=== PATIENT | female | born 1960 | race Caucasian/White ===

== ENCOUNTER 2018-03-23 23:06 | Inpatient (IN) | payer MEDICARE, BC ==
[~2018-03-23] VITALS: Ht 180.3 cm; Wt 104.5 kg
[~2018-03-23 23:06] MED LIST: CIPR500T2 PO; DIOV160T60 PO; HYDR12.56 PO; LEVIMER SQ; METF-324 PO; PROM6.257 PO; ZITH250T PO
[2018-03-23 23:15] VITALS: BP 119/72; PULSE 56; RESP 20; TEMP 98; O2SAT 99
[2018-03-23] MEDS ORDERED: DEXTROSE 50% IN WATER 50 ML SYRINGE IV PUSH ONE (23:15)
[2018-03-23] MEDS ORDERED: DEXTROSE 50% IN WATER 50 ML SYRINGE ONE (23:16)
[2018-03-23 23:21] VITALS: RESP 20
[2018-03-23 23:25] VITALS: BP 163/68; PULSE 52; RESP 20; O2SAT 96
[2018-03-23] MEDS ORDERED: LYRI150C PO (23:25)
[2018-03-23] MEDS ORDERED: DIOV160T6 PO (23:25)
[2018-03-23] MEDS ORDERED: HUMALOG SQ (23:25)
[2018-03-23] MEDS ORDERED: METF1000 PO (23:25)
[2018-03-23 23:36] LABS: AUTOMATED NEUTROPHIL # 4.3 TH/MM3 (1.8-7.7); BASOPHIL # 0.1 TH/MM3 (0-0.2); EOSINOPHIL # 0.1 TH/MM3 (0-0.4); EOSINOPHIL % 1.5 % (0.0-4.0); HEMATOCRIT 38.8 % (35.0-46.0); HEMOGLOBIN 12.9 GM/DL (11.6-15.3); LYMPHOCYTE # 1.9 TH/MM3 (1.0-4.8); MEAN CELL VOLUME 83.8 FL (80.0-100.0); MEAN CORPUSCULAR HEMOGLOBIN 27.9 PG (27.0-34.0); MEAN CORPUSCULAR HGB CONC 33.3 % (32.0-36.0); MEAN PLATELET VOLUME 9.6 FL (7.0-11.0); MONO % 9.3 % (0.0-8.0); MONOCYTE # 0.6 TH/MM3 (0-0.9); NEUT % 61.2 % (16.0-70.0); PLATELET COUNT 182 TH/MM3 (150-450); RED BLOOD COUNT 4.63 MIL/MM3 (4.00-5.30); RED CELL DISTRIBUTION WIDTH 15.2 % (11.6-17.2)
[2018-03-23 23:52] LABS: ALBUMIN 2.5 GM/DL (3.4-5.0); ALT (GPT) 23 U/L (10-53); AST (GOT) 24 U/L (15-37); BLOOD UREA NITROGEN 52 MG/DL (7-18); CALCIUM 8.4 MG/DL (8.5-10.1); CHLORIDE 114 MEQ/L (98-107); CREATININE 5.19 MG/DL (0.50-1.00); GLOMERULAR FILTRATION RATE 9 ML/MIN (>89); GLUCOSE,RANDOM 230 MG/DL (74-106); MAGNESIUM 2.5 MG/DL (1.5-2.5); SODIUM (NA) 144 MEQ/L (136-145)
[2018-03-23 23:55] LABS: PROTHROMBIN TIME - PATIENT 10.6 SEC (9.8-11.6)
--- NOTE | 2018-03-23 23:55 | RADRPT ---
EXAM DATE: 03/23/2018 11:48 PM EDT AGE/SEX: 57 years / Female INDICATIONS: AMS. Diabetic symptoms. CLINICAL DATA: This is the patient's initial encounter. Patient reports that signs and symptoms have been present for 1 day and indicates a pain score of Nonresponsive. MEDICAL/SURGICAL HISTORY: Diabetes. . Triple by-pass. COMPARISON: No prior exams available for comparison. FINDINGS: Single AP view of the chest. Median sternotomy wires are present. Lung volumes are low. Th e lungs are clear. Cardiomediastinal silhouette within normal limits. No evidence of pleural effusi on or pneumothorax. CONCLUSION: No acute cardiopulmonary disease identified. Electronically signed by: Booker Alcaraz MD 03/23/2018 11:54 PM EDT
[2018-03-23 23:56] LABS: ALKALINE PHOSPHATASE 64 U/L (45-117); TOTAL BILIRUBIN ADULT 0.2 MG/DL (0.2-1.0); TOTAL PROTEIN 5.9 GM/DL (6.4-8.2); TROPONIN I LESS THAN 0.02 NG/ML (0.02-0.05)
[2018-03-24] VITALS (36 sets, daily range): BP systolic 139–245; BP diastolic 65–115; PULSE 52–81; RESP 10–36; TEMP 92.3–98.3; O2SAT 92–100
[2018-03-24] MEDS ORDERED: LEVEMIR SQ (00:01)
[2018-03-24] MEDS ORDERED: TRAD5TAB PO (00:01)
[2018-03-24] MEDS ORDERED: SODIUM CHLORIDE 23.4% INJ 154 MEQ in DEXTROSE 10% INJ 1,000 ML IV SCH (00:15)
--- NOTE | 2018-03-24 00:16 | PD ---
HPI Chief Complaint: Diabetic Time Seen by Provider: 23:15 Travel History International Travel<30 days: No Contact w/Intl Traveler<30days: No Traveled to known affect area: No History of Present Illness HPI The patient is a 57 year old female who presents to the [facility] emergency department with a history of diaphoresis with a decreased level of consciousness that began in the evening today according to her . He then called the ambulance services and the patient was noted to have a blood sugar of 16. The patient last administered her insulin around noon. She administered 20 units of Levemir and 15 units of Humalog. The patient has not eaten her dinner this evening. She last ate lunch at 1 PM. She denies having any nausea, vomiting, she does report feeling cold and is diaphoretic. The patient reports having a bitemporal headache and low back pain. She reports having a history of chronic back pain and is on [place] and [place]. She reports that she awoke with worsening back pain this morning. She is currently on vacation. Her reports that she does have chronic renal insufficiency that is so severe that she will likely have to go on dialysis when she returns from vacation. On review of systems otherwise, the patient denies having any known recent fevers, cough, congestion, neck pain, chest pain, shortness of breath, abdominal pain, vomiting, diarrhea, urinary symptoms, one-sided weakness , facial droop, difficulty with word finding ability, or numbness or tingling to her extremities. [facility] Past Medical History Narrative Medical The patient's past medical history is significant for diabetes mellitus, hypertension, chronic back pain, chronic renal insufficiency Diabetes: Yes Patient Takes Glucophage: Yes Diminished Hearing: No Hypertension: Yes Immunizations Current: Yes Tetanus Vaccination: Unknown Influenza Vaccination: No ?: Not Past Surgical History Narrative Surgical The patient's past surgical history is significant for gastric bypass surgery, bladder surgery, back surgery, hysterectomy, cholecystectomy. Abdominal Surgery: Yes (GASTRIC BYPASS 30 YRS AGO) Section: Yes Cholecystectomy: Yes Genitourinary Surgery: Yes (BLADDER LIFT) Hysterectomy: Yes (PARTIAL) Neurologic Surgery: Yes (BACK SURGERY) Social History Alcohol Use: Yes (COUPLE TIMES A YEAR) Tobacco Use: Yes (1 PPD) Substance Use: No Allergies-Medications (Allergen,Severity, Reaction): Coded Allergies: sumatriptan (Unverified Allergy, Severe, HIVES, 03/23/18) Reported Meds & Prescriptions Reported Meds & Active Scripts Active Reported Tradjenta (Linagliptin) 5 Mg Tab 5 Mg PO DAILY Levemir Inj (Insulin Detemir) 1,000 unit/ 10 ML Vial 20 Units SQ BID Do not mix with any other Insulin. Diovan (Valsartan) 160 Mg Tab 160 Mg PO BID Humalog Inj (Insulin Human Lispro) 1,000 Unit/10 Ml Vial 2-12 Units SQ ACHS Max dose at bedtime:( )units; sugars < 70,(0)units; sugars 150-199,(2)units; sugars 200-249,(4)units; sugars 250-299,(7)units; sugars 300-349,(10)units; sugars more than 349,(12)units. Lyrica (Pregabalin) 150 Mg Cap 150 Mg PO BID Metformin (Metformin HCl) 1,000 Mg Tab 1,000 Mg PO BIDPC Review of Systems ROS Limitations: Altered Mental Status, Poor Historian (The patient's and provided additional history on his arrival) Except as stated in HPI: all other systems reviewed are Neg General / Constitutional: No: Fever Eyes: No: Visual changes HENT: No: Headaches Cardiovascular: No: Chest Pain or Discomfort Respiratory: No: Shortness of Breath Gastrointestinal: No: Nausea, Vomiting, Diarrhea, Abdominal Pain Genitourinary: No: Dysuria Musculoskeletal: Positive: Myalgias, Pain Skin: No Rash Neurologic: Positive: Weakness (Generalized weakness), Change in Mentation, Slurred Speech, No: Focal Abnormalities, Sensory Disturbance Psychiatric: No: Depression Endocrine: No: Polydipsia Hematologic/Lymphatic: No: Easy Bruising Physical Exam Narrative General: The patient is a well-developed well-nourished female, drowsy on my arrival to the room although arousable, awakened easily with voice. Head and Neck exam: Head is normocephalic atraumatic. Eyes: EOMI, pupils are equal round and reactive to light. Nose: Midline septum with pink mucous membranes Mouth: Dentition unremarkable. Moist mucus membranes. Posterior oropharynx is not erythematous. No tonsillar hypertrophy. Uvula midline. Airway patent. Neck: No palpable lymphadenopathy. No nuchal rigidity. No thyromegaly. Cardiovascular: Regular rate and rhythm without murmurs, gallops, or rubs. No pulse deficit to the extremities on simultaneous auscultation and palpation of her radial artery. Lungs: Clear to auscultation bilaterally. No wheezes, rhonchi, or rales. Abdomen: Soft, without tenderness to palpation in all 4 quadrants of the abdomen. No guarding, rebound, or rigidity. Normal bowel sounds are audible. No tenderness on palpation of McBurney's point. Negative Blue sign. Extremities: No clubbing, cyanosis, or edema. 2+ pulses in all 4 extremities. No calf tenderness on palpation. Back: No spinous process tenderness to palpation. The patient reports paraspinal muscle tenderness on palpation along the upper and lower lumbar paraspinal musculature. There is no erythema or ecchymosis. No step-off or crepitus. No costovertebral angle tenderness to palpation. Neurologic Exam: Cranial nerves 2-12 were intact on exam. Strength is 5/5 in all 4 extremities. No sensory deficits noted. The patient has slightly slurred speech. The patient is drowsy on examination. The patient has no other focal findings and is cooperative with examination although she has to be frequently awakened. Skin Exam: No rash noted. Intact skin that is warm and dry. Data Data Last Documented VS Vital Signs Date Time Temp Pulse Resp B/P (MAP) Pulse Ox O2 Delivery O2 Flow Rate FiO2 03/23/18 23:25 52 20 163/68 (99) 96 Room Air Orders Orders Electrocardiogram (03/23/18 23:15) Complete Blood Count With Diff (03/23/18 23:) Comprehensive Metabolic Panel (03/23/18:) Creatine Kinase (Cpk) (03/23/18 23:15) Ckmb (Isoenzyme) Profile (03/23/18:15) Troponin I (03/23/18 23:15) B-Type Natriuretic Peptide (03/23/18 23:15) Prothrombin Time / Inr (Pt) (03/23/18:15) Act Partial Throm Time (Ptt) (03/23/18 23:15) Lipase (03/23/18 23:15) Urinalysis - C+S If Indicated (03/23/18 23:) Cath For Specimen (03/23/18:) Magnesium (Mg) (03/23/18 23:15) Chest, Single Ap (03/23/18 23:15) Iv Access Insert/Monitor (03/23/18 23:15) Ecg Monitoring (03/23/18 23:15) Oximetry (03/23/18 23:15) Blood Glucose (03/23/18 23:15) ^ Hypoglycemia Protocol (03/23/18 23:15) Dextrose 50% In Judy (Syr) Inj (D50w (Syr (03/23/18 23:15) Dextrose 50% In Judy (Syr) Inj (D50w (Syr (03/23/18 23:16) CKMB (03/23/18 23:25) CKMB% (03/23/18 23:25) Dextrose 10% Inj (D... W/Sodium Chloride (03/24/18 00:15) Urinary Catheter Insert/Apply (03/24/18 00:05) Dextrose 50% In Judy (Syr) Inj (D50w (Syr (03/24/18 00:30) Admit Order (Ed Use Only) (03/24/18 00:26) Labs Laboratory Tests Test 03/23/18 23:25 White Blood Count 7.0 TH/MM3 Red Blood Count 4.63 MIL/MM3 Hemoglobin 12.9 GM/DL Hematocrit 38.8 % Mean Corpuscular Volume 83.8 FL Mean Corpuscular Hemoglobin 27.9 PG Mean Corpuscular Hemoglobin Concent 33.3 % Red Cell Distribution Width 15.2 % Platelet Count 182 TH/MM3 Mean Platelet Volume 9.6 FL Neutrophils (%) (Auto) 61.2 % Lymphocytes (%) (Auto) 27.0 % Monocytes (%) (Auto) 9.3 % Eosinophils (%) (Auto) 1.5 % Basophils (%) (Auto) 1.0 % Neutrophils # (Auto) 4.3 TH/MM3 Lymphocytes # (Auto) 1.9 TH/MM3 Monocytes # (Auto) 0.6 TH/MM3 Eosinophils # (Auto) 0.1 TH/MM3 Basophils # (Auto) 0.1 TH/MM3 CBC Comment DIFF FINAL Differential Comment Prothrombin Time 10.6 SEC Prothromb Time International Ratio 1.0 RATIO Activated Partial Thromboplast Time 25.0 SEC Blood Urea Nitrogen 52 MG/DL Creatinine 5.19 MG/DL Random Glucose 230 MG/DL Total Protein 5.9 GM/DL Albumin 2.5 GM/DL Calcium Level 8.4 MG/DL Magnesium Level 2.5 MG/DL Alkaline Phosphatase 64 U/L Aspartate Amino Transf (AST/SGOT) 24 U/L Alanine Aminotransferase (ALT/SGPT) 23 U/L Total Bilirubin 0.2 MG/DL Sodium Level 144 MEQ/L Potassium Level 4.2 MEQ/L Chloride Level 114 MEQ/L Carbon Dioxide Level 20.0 MEQ/L Anion Gap 10 MEQ/L Estimat Glomerular Filtration Rate 9 ML/MIN Total Creatine Kinase 367 U/L Creatine Kinase MB 4.9 NG/ML Creatine Kinase MB % 1.3 % Troponin I LESS THAN 0.02 NG/ML B-Type Natriuretic Peptide 103 PG/ML Lipase 268 U/L MDM Medical Decision Making Medical Screen Exam Complete: Yes Emergency Medical Condition: Yes Medical Record Reviewed: Yes Differential Diagnosis Hypoglycemia related to decreased p.o. intake, versus renal failure, versus medication error Narrative Course During the course of the patient's emergency department visit, the patient's history, examination, and differential diagnosis were reviewed with the patient. The patient was placed on a bible worker with oximetry and frequent blood pressure monitoring. The patient had IV access obtained and blood work sent for analysis. The patient had an EKG done on arrival. The patient's EKG reveals sinus bradycardia heart rate of 58, QRS duration 112 ms, QTC [address] segment elevation is noted. The patient's blood sugar on arrival began to go down again and was 36 whereas after 25 g of D10 by ambulance services it had been 60. The patient was given 1 amp of dextrose, 50 g IV. The patient's blood sugar was monitored closely. The patient's blood sugar began to drop again down to in the 80s. The patient reported continuing to feel cold the patient's blood sugar again went down to 66. A D10 drip will be started. This has to be mixed by pharmacy, therefore the patient was given an additional amp of dextrose 50. Chest x-ray, CT scan of the brain was ordered. The patient's laboratory studies were reviewed and remarkable for A white count of 7, hemoglobin 12.9, platelets 182 with 9.3 monocytes, chemistries remarkable for a chloride of 114, CO2 20, BUN 52, creatinine 5.19, given the patient's acute renal failure the patient that a Bueno catheter placed to gravity to carefully monitor her urine output while providing crystalloid resuscitation, glucose 230, calcium 8.4, CPK 367, MB percent 1.3, troponin I less than 0.02, BNP 103, lipase 268. PT PTT unremarkable, urinalysis shows hazy urine greater than 600 protein 300 glucose, moderate bacteria, culture indicated.. Radiology studies were reviewed and remarkable for Last Impressions Renal Ultrasound 03/24/18 0000 Signed Impressions: CONCLUSION: 1. No obstruction. 2. Sonographic findings suggesting underlying medical renal disease. Chest X-Ray 03/23/18 2315 Signed Impressions: CONCLUSION: No acute cardiopulmonary disease identified. The patient's results were discussed with the patient, including the plan of care. I explained that further testing and/ or monitoring is indicated based on the patient's history, examination, and/ or laboratory findings. Therefore, I recommended admission for additional evaluation. The patient expressed understanding and was agreeable with this plan. The patient was admitted to the hospital in guarded condition and sent to a bed under the care of Dr. Watts. Critical Care Narrative Aggregate critical care time was 32 minutes. Time to perform other separately billable procedures was not included in the critical care time. My time did not include minutes spent treating any other patients simultaneously or on activities that did not directly contribute to the patient's treatment. The services I provided to this patient were to treat and/or prevent clinically significant deterioration that could result in: Encephalopathy related to continued hypoglycemia, versus progression of renal failure requiring hemodialysis, versus electrolyte derangements related to renal failure, versus respiratory failure from crystalloid resuscitation. I provided critical care services requiring my management, as noted below: Chart data review, documentation time, medication orders and management, vital sign assessments/reviewing monitor data, ordering and reviewing lab tests, ordering and interpreting/reviewing x-rays and diagnostic studies, care of the patient and discussion of the patient with the admitting physicians. Physician Communication Physician Communication The patient's case including history, pertinent physical examination findings, and laboratory studies were discussed with Dr. Watts. It was agreed that the patient would be admitted to the talent consultant's service. Diagnosis Primary Impression: Altered mental status Qualified Codes: R40.0 - Somnolence Additional Impressions: Hypoglycemia Renal failure (ARF), acute on chronic Qualified Codes: N17.9 - Acute kidney failure, unspecified; N18.9 - Chronic kidney disease, unspecified Admitting Information Admitting Physician Requests: Admit Tiki Oconnor MD Mar 24, 2018 00:16
[2018-03-24] MEDS ORDERED: DEXTROSE 50% IN WATER 50 ML SYRINGE IV PUSH ONE (00:30)
[2018-03-24] MEDS ORDERED: SODIUM CHLOR 0.9% 1000 ML INJ 1,000 ML IV SCH (00:35)
--- NOTE | 2018-03-24 00:44 | HHI.HP ---
HPI Service Critical Care Medicine Primary Care Physician Unknown Admission Diagnosis AMS, renal failure, persistent hypoglycemia Diagnosis: Travel History International Travel<30 Days: No Contact w/Intl Traveler <30 Da: No Traveled to Known Affected Are: No History of Present Illness 57 year old female presents with a history of diaphoresis with a decreased level of consciousness that began in the evening today according to her . He then called the ambulance services and the patient was noted to have a blood sugar of 16. The patient last administered her insulin around noon. She administered 20 units of Levemir and 15 units of Humalog. The patient has not eaten her dinner this evening. She last ate lunch at 1 PM. She denies having any nausea, vomiting, she does report feeling cold and is diaphoretic. The patient reports having a bitemporal headache and low back pain. She reports having a history of chronic back pain and is on [place] and [place]. She reports that she awoke with worsening back pain this morning. She is currently on vacation. Her reports that she does have chronic renal insufficiency that is so severe that she will likely have to go on dialysis when she returns from vacation. Review of Systems ROS Unable to obtain due to patient's altered mental status and lethargy Past Family Social History Allergies: Coded Allergies: sumatriptan (Unverified Allergy, Severe, HIVES, 03/23/18) Past Medical History Diabetes mellitus insulin-dependent Hypertension Past Surgical History Abdominal Surgery: Yes (GASTRIC BYPASS 30 YRS AGO) Section: Yes Cholecystectomy: Yes Genitourinary Surgery: Yes (BLADDER LIFT) Hysterectomy: Yes (PARTIAL) Neurologic Surgery: Yes (BACK SURGERY) Reported Medications Reported Meds & Active Scripts Active Reported Tradjenta (Linagliptin) 5 Mg Tab 5 Mg PO DAILY Levemir Inj (Insulin Detemir) 1,000 unit/ 10 ML Vial 20 Units SQ BID Do not mix with any other Insulin. Diovan (Valsartan) 160 Mg Tab 160 Mg PO BID Humalog Inj (Insulin Human Lispro) 1,000 Unit/10 Ml Vial 2-12 Units SQ ACHS Max dose at bedtime:( )units; sugars < 70,(0)units; sugars 150-199,(2)units; sugars 200-249,(4)units; sugars 250-299,(7)units; sugars 300-349,(10)units; sugars more than 349,(12)units. Lyrica (Pregabalin) 150 Mg Cap 150 Mg PO BID Metformin (Metformin HCl) 1,000 Mg Tab 1,000 Mg PO BIDPC Active Ordered Medications Current Medications Medications (Trade) Dose Ordered Sig/Diana Route PRN Reason Start Time Stop Time Status Last Admin Dose Admin Sodium Chloride 154 meq/Dextrose 1,038.5 ml @ 70 mls/hr [id number] IV 03/24/18 00:15 03/24/18 00:36 Family History No family history of early coronary artery disease Social History Alcohol Use: Yes (COUPLE TIMES A YEAR) Tobacco Use: Yes (1 PPD) Substance Use: No Physical Exam Vital Signs Vital Signs Date Time Temp Pulse Resp B/P (MAP) Pulse Ox O2 Delivery O2 Flow Rate FiO2 03/23/18 23:25 52 20 163/68 (99) 96 Room Air 03/23/18 23:21 20 03/23/18 23:15 56 20 119/72 (88) 99 Physical Exam GENERAL: Well-nourished, well-developed patient. Lethargic SKIN: Warm and diaphoretic. HEAD: Normocephalic. EYES: No scleral icterus. No injection or drainage. NECK: Supple, trachea midline. No JVD or lymphadenopathy. CARDIOVASCULAR: Regular rate and rhythm without murmurs, gallops, or rubs. RESPIRATORY: Breath sounds equal bilaterally. No accessory muscle use. GASTROINTESTINAL: Abdomen soft, non-tender, nondistended. MUSCULOSKELETAL: No cyanosis, or edema. BACK: Nontender without obvious deformity. NEURO EXAM: GCS: 14 Mental Status: The patient is alert and oriented to person, place, and time with normal speech. Cranial Nerves: Visual acuity intact bilaterally. Visual curry normal in all quadrants. Pupils are round, reactive to light. Extraocular movements are intact without ptosis. Hearing is normal bilaterally. Voice is normal. Tongue protrudes midline and moves symmetrically. Laboratory Laboratory Tests Test 03/23/18 23:25 White Blood Count 7.0 Red Blood Count 4.63 Hemoglobin 12.9 Hematocrit 38.8 Mean Corpuscular Volume 83.8 Mean Corpuscular Hemoglobin 27.9 Mean Corpuscular Hemoglobin Concent 33.3 Red Cell Distribution Width 15.2 Platelet Count 182 Mean Platelet Volume 9.6 Neutrophils (%) (Auto) 61.2 Lymphocytes (%) (Auto) 27.0 Monocytes (%) (Auto) 9.3 Eosinophils (%) (Auto) 1.5 Basophils (%) (Auto) 1.0 Neutrophils # (Auto) 4.3 Lymphocytes # (Auto) 1.9 Monocytes # (Auto) 0.6 Eosinophils # (Auto) 0.1 Basophils # (Auto) 0.1 CBC Comment DIFF FINAL Differential Comment Prothrombin Time 10.6 Prothromb Time International Ratio 1.0 Activated Partial Thromboplast Time 25.0 Blood Urea Nitrogen 52 Creatinine 5.19 Random Glucose 230 Total Protein 5.9 Albumin 2.5 Calcium Level 8.4 Magnesium Level 2.5 Alkaline Phosphatase 64 Aspartate Amino Transf (AST/SGOT) 24 Alanine Aminotransferase (ALT/SGPT) 23 Total Bilirubin 0.2 Sodium Level 144 Potassium Level 4.2 Chloride Level 114 Carbon Dioxide Level 20.0 Anion Gap 10 Estimat Glomerular Filtration Rate 9 Total Creatine Kinase 367 Creatine Kinase MB 4.9 Creatine Kinase MB % 1.3 Troponin I LESS THAN 0.02 B-Type Natriuretic Peptide 103 Lipase 268 Result Diagram: 03/23/18232403/23/182324 Imaging Last 24 hours Impressions Chest X-Ray 03/23/185 Signed Impressions: CONCLUSION: No acute cardiopulmonary disease identified. Caprini VTE Risk Assessment Caprini VTE Risk Assessment: Mod/High Risk (score >= 2) Caprini Risk Assessment Model Point Value = 1 Point Value = 2 Point Value = 3 Point Value = 5 Age 41-60 Minor surgery BMI > 25 kg/m2 Swollen legs Varicose veins or History of unexplained or recurrent spontaneous Oral contraceptives or hormone replacement Sepsis (< 1 month) Serious lung disease, including pneumonia (< 1 month) Abnormal pulmonary function Acute myocardial infarction Congestive heart failure (< 1 month) History of inflammatory bowel disease Medical patient at bed rest Age 61-74 Arthroscopic surgery Major open surgery (> 45 min) Laparoscopic surgery (> 45 min) Malignancy Confined to bed (> 72 hours) Immobilizing plaster cast Central venous access Age >= 75 History of VTE Family history of VTE Factor V Leiden Prothrombin [id number] Lupus anticoagulant Anticardiolipin antibodies Elevated serum homocysteine Heparin-induced thrombocytopenia Other congenital or acquired thrombophilia Stroke (< 1 month) Elective arthroplasty Hip, pelvis, or leg fracture Acute spinal cord injury (< 1 month) Prophylaxis Regimen Total Risk Factor Score Risk Level Prophylaxis Regimen 0-1 Low Early ambulation 2 Moderate Order ONE of the following: *Sequential Compression Device (SCD) *Heparin 5000 units SQ BID 3-4 Higher Order ONE of the following medications: *Heparin 5000 units SQ TID *Enoxaparin/Lovenox 40 mg SQ daily (WT < 150 kg, CrCl > 30 mL/min) *Enoxaparin/Lovenox 30 mg SQ daily (WT < 150 kg, CrCl > 10-29 mL/min) *Enoxaparin/Lovenox 30 mg SQ BID (WT < 150 kg, CrCl > 30 mL/min) AND/OR *Sequential Compression Device (SCD) 5 or more Highest Order ONE of the following medications: *Heparin 5000 units SQ TID (Preferred with Epidurals) *Enoxaparin/Lovenox 40 mg SQ daily (WT < 150 kg, CrCl > 30 mL/min) *Enoxaparin/Lovenox 30 mg SQ daily (WT < 150 kg, CrCl > 10-29 mL/min) *Enoxaparin/Lovenox 30 mg SQ BID (WT < 150 kg, CrCl > 30 mL/min) AND *Sequential Compression Device (SCD) Assessment and Plan Assessment and Plan Altered mental status -Symptomatic hypoglycemia -D10W infusion -Hold insulin and metformin -Frequent glucose checks Diabetes mellitus -Currently hypoglycemic -Hold insulin and metformin -Insulin sliding scale Hypertension -Labetalol PRN Chronic renal disease -Ultrasound kidneys -Nephrology consultation DVT GI prophylaxis -Teds SCDs -Subcu heparin -Pepcid Critical Care: The total critical care time was 35 minutes. Time to perform other separately billable procedures was not included in the critical care time. Maxx Watts MD Mar 24, 2018 12:44 am
[2018-03-24] MEDS: DEXTROSE 10% INJ 1,000 ML IV SCH ×2 (00:45→06:13)
[2018-03-24] MEDS ORDERED: ONDANSETRON ODT 4 MG TAB PO PRN (00:45)
[2018-03-24] MEDS ORDERED: LACTULOSE SYRUP 20 GM/30 ML CUP PO PRN (00:45)
[2018-03-24] MEDS ORDERED: MAGNESIUM HYDROXIDE SUSP 30 ML CUP PO PRN (00:45)
[2018-03-24] MEDS ORDERED: CHLORHEXIDINE GLUCONATE 2 % 1 PACK (2 CLOTHS) TOP PRN (00:45)
[2018-03-24] MEDS ORDERED: ACETAMINOPHEN 325 MG TAB PO PRN (00:45)
[2018-03-24] MEDS ORDERED: TEMAZEPAM 15 MG CAP PO PRN (00:45)
[2018-03-24] MEDS ORDERED: DEXTROSE 50% IN WATER 50 ML VIAL(D50) IV PUSH PRN (00:45)
[2018-03-24] MEDS ORDERED: GLUCAGON 1 MG/ML VIAL OTHER PRN (00:45)
[2018-03-24] MEDS ORDERED: SODIUM CHLORIDE 0.9% FLUSH 10 ML FLUSH IV FLUSH PRN (00:45)
[2018-03-24] MEDS ORDERED: BISACODYL 10 MG SUPP RECTAL PRN (00:45)
[2018-03-24] MEDS ORDERED: SENNOSIDES 8.6 MG TAB PO PRN (00:45)
[2018-03-24] MEDS ORDERED: NURSING INFORMATION XX SCH (00:45)
[2018-03-24 01:17] LABS: BACTERIA, URINE MOD /hpf; BILIRUBIN, URINE NEG (NEG); BLOOD, URINE MOD (NEG); GLUCOSE,URINE 300 mg/dL (NEG); HYALINE CAST, URINE 6 /lpf (RARE); KETONE, URINE NEG (NEG); MUCUS URINE FEW /lpf (OCC); NITRITE,URINE NEG (NEG); PH, URINE 6.5 (5.0-8.5); SQUAMOUS EPITHELIAL CELL URINE 1 /hpf (0-5); URINE COLOR YELLOW (YELLW/STRAW); URINE LEUKOCYTE ESTERASE NEG (NEG)
[2018-03-24] MEDS: HEPARIN SODIUM - SQ 10,000 UNITS/ML VIAL SQ SCH ×3 (02:03→16:11)
[2018-03-24] MEDS: ACETAMINOPHEN/HYDROcodone 325 MG/7.5 MG TAB PO PRN ×4 (02:03→20:00)
[2018-03-24] MEDS: CHLORHEXIDINE GLUCONATE 2 % 1 PACK (2 CLOTHS) TOP SCH (02:32)
[2018-03-24] MEDS ORDERED: INSULIN ASPART SUPPLEMENTAL SCALE SQ SCH (06:00)
[2018-03-24] MEDS: INSULIN ASPART SUPPLEMENTAL SCALE SQ SCH ×4 (08:00→20:01)
[2018-03-24] MEDS: DOCUSATE SODIUM 50 MG/SENNA 8.6 MG TAB PO SCH ×2 (08:18→20:00)
[2018-03-24] MEDS: LABETALOL HCL 100 MG/20 ML VIAL IV PUSH PRN ×4 (08:18→22:03)
[2018-03-24] MEDS: SODIUM CHLORIDE 0.9% FLUSH 10 ML FLUSH IV FLUSH SCH ×2 (08:21→20:01)
[2018-03-24] MEDS ORDERED: FAMOTIDINE 20 MG/2 ML VIAL IV PUSH SCH ×2 (09:00)
--- NOTE | 2018-03-24 10:12 | RADRPT ---
EXAM DATE: 03/24/2018 9:58 AM EDT AGE/SEX: 57 years / Female INDICATIONS: Increased BUN/Creatinine. CLINICAL DATA: This is the patient's initial encounter. Patient reports that signs and symptoms have been present for 1 day and indicates a pain score of 0/10. MEDICAL/SURGICAL HISTORY: Hypertension. Diabetes. Gastric bypass. Hysterectomy. se ction. CABG. Bladder lift. Back surgery. Cholecystectomy. Bladder lift. COMPARISON: No prior exams available for comparison. MEASUREMENTS: Right Kidney:__10.1 x 5.8 x 5.3 cm cm Left Kidney:__10.1 x 5.7 x 5.0 cm cm FINDINGS: Right Kidney: The kidney is normal in size and shape. Slight increase in echogenicity. No mass or hyd ronephrosis. Left Kidney: The kidney is normal in size and shape. Slight increase in echogenicity. No mass or hydr onephrosis. Bladder: Urinary bladder is totally decompressed and not well evaluated.. CONCLUSION: 1. No obstruction. 2. Sonographic findings suggesting underlying medical renal disease. Electronically signed by: Ashish Wilson MD 03/24/2018 10:10 AM EDT
--- NOTE | 2018-03-24 11:25 | PD.CONS ---
HPI Service Nephrology Consult Requested By Reason for Consult CKD 5 not on HD Primary Care Physician Unknown History of Present Illness This is a 57 y/o female patient with DM II and HTN brought in by for AMS. She was severely hypoglycemic on arrival, on D10 currently. Her renal function is poor, thus we were consulted for assistance. GFR currently is 9, creatinine 5.19, BUN 52. She is making urine, has a Bueno. After discussion she is on vacation from [place], has been seeing a electric furnace operator for 4 years. She is unclear the etiology of her CKD, has not had a biopsy and has not began to get AV access. There is no edema or evidence of fluid overload. Her blood pressure control is poor, reports she has been asking for antihypertensives from electric furnace operator but has not been given Rx. She is a full code. (Phuong Rodriguez) Review of Systems Constitutional: COMPLAINS OF: Fatigue, Weight loss, Change in appetite, DENIES : Weight gain Respiratory: DENIES: Shortness of breath Cardiovascular: DENIES: Chest pain, Dyspnea on Exertion, Lower Extremity Edema Gastrointestinal: DENIES: Abdominal pain Psychiatric: COMPLAINS OF: Confusion, Mood changes, Depression (Phuong Rodriguez) Past Family Social History Allergies: Coded Allergies: sumatriptan (Unverified Allergy, Severe, HIVES, 03/23/18) Past Medical History CKD 5, baseline GFR of 8 from two weeks ago, etiology of CKD not clear HTN DM II chronic pain Past Surgical History Abdominal Surgery: Yes (GASTRIC BYPASS 30 YRS AGO) Section: Yes Cholecystectomy: Yes Genitourinary Surgery: Yes (BLADDER LIFT) Hysterectomy: Yes (PARTIAL) Neurologic Surgery: Yes (BACK SURGERY) Reported Medications Tradjenta (Linagliptin) 5 Mg Tab 5 Mg PO DAILY Levemir Inj (Insulin Detemir) 1,000 unit/ 10 ML Vial 20 Units SQ BID Do not mix with any other Insulin. Diovan (Valsartan) 160 Mg Tab 160 Mg PO BID Humalog Inj (Insulin Human Lispro) 1,000 Unit/10 Ml Vial 2-12 Units SQ ACHS Max dose at bedtime:( )units; sugars < 70,(0)units; sugars 150-199,(2)units; sugars 200-249,(4)units; sugars 250-299,(7)units; sugars 300-349,(10)units; sugars more than 349,(12)units. Lyrica (Pregabalin) 150 Mg Cap 150 Mg PO BID Active Ordered Medications Current Medications Medications (Trade) Dose Ordered Sig/Diana Route Start Time Stop Time Status Last Admin Sodium Chloride 1,000 ml @ 84 mls/hr [id number] IV 03/24/18 00:35 03/24/18 00:35 (NS Flush) 2 ml UNSCH PRN IV FLUSH 03/24/18 00:45 (NS Flush) 2 ml BID IV FLUSH 03/24/18 09:00 (Tylenol) 650 mg Q6H PRN PO 03/24/18 00:45 (Zofran Odt) 4 mg Q6H PRN PO 03/24/18 00:45 (Restoril) 15 mg HS PRN PO 03/24/18 00:45 03/24/18 02:03 (Heparin Inj) 5,000 units Q8H SQ 03/24/18 00:45 03/24/18 08:18 ([facility] [place] [facility]) 1 Q361D XX 03/24/18 00:45 (Chlorhexidine 2% Cloth) 3 pack Taper DAILY@04 TOP 03/24/18 04:00 03/20/19 03:59 03/24/18 02:32 (Chlorhexidine 2% Cloth) 3 pack UNSCH PRN TOP 03/24/18 00:45 (Stacie-Colace) 1 tab BID PO 03/24/18 09:00 03/24/18 08:18 (Milk Of Magnesia Liq) 30 ml Q12H PRN PO 03/24/18 00:45 (Senokot) 17.2 mg Q12H PRN PO 03/24/18 00:45 (Dulcolax Supp) 10 mg DAILY PRN RECTAL 03/24/18 00:45 (Lactulose Liq) 30 ml DAILY PRN PO 03/24/18 00:45 (D50w (Vial) Inj) 50 ml UNSCH PRN IV PUSH 03/24/18 00:45 (Glucagon Inj) 1 mg UNSCH PRN OTHER 03/24/18 00:45 (NovoLOG SUPPLEMENTAL SCALE) 1 ACHS SLIDING SCALE SQ 03/24/18 08:00 Dextrose 1,000 ml @ 10 mls/hr Q24H IV 03/24/18 00:45 03/24/18 06:13 (Molt 7.5-325 Mg) 1 tab Q4H PRN PO 03/24/18 00:45 03/24/18 05:49 (Pepcid Inj) 20 mg DAILY IV PUSH 03/24/18 09:00 03/24/18 08:18 (Trandate Inj) 10 mg Q4H PRN IV PUSH 03/24/18 04:30 03/24/18 08:18 Family History Non contributory Social History Non smoker Does occasionally smoker marijuana No ETOH Lives in [place] Full code Disabled (Phuong Rodriguez) Physical Exam Vital Signs Vital Signs Date Time Temp Pulse Resp B/P (MAP) Pulse Ox O2 Delivery O2 Flow Rate FiO2 03/24/18 08:01 97.9 73 10 197/86 (123) 92 03/24/18 08:01 97.9 73 10 197/86 (123) 92 03/24/18 08:00 97.9 75 21 93 03/24/18 08:00 97.9 75 21 93 03/24/18 07:45 97.7 74 25 96 03/24/18 07:30 97.7 72 14 192/84 (120) 92 03/24/18 06:00 69 03/24/18 04:37 95.0 59 20 139/65 (89) 93 03/24/18 04:00 59 03/24/18 04:00 95.0 59 20 141/66 (91) 93 03/24/18 03:00 94.0 62 20 165/78 (107) 93 03/24/18 02:41 60 03/24/18 02:00 93.0 62 20 193/110 (137) 97 03/24/18 01:40 03/24/18 01:13 92.3 56 14 187/87 (120) 96 Room Air 03/24/18 00:30 52 18 178/84 (115) 96 Room Air 03/23/18 23:25 52 20 163/68 (99) 96 Room Air 03/23/18 23:21 20 03/23/18 23:15 56 20 119/72 (88) 99 Physical Exam Obese female, middle aged Awake, alert, follows commands S1/S2, RRR no murmurs Lungs with scattered wheezing, no rales Trace lower extremity edema Bueno in place Laboratory Laboratory Tests Test 03/23/18 23:25 03/24/18 00:51 03/24/18 01:50 White Blood Count 7.0 Red Blood Count 4.63 Hemoglobin 12.9 Hematocrit 38.8 Mean Corpuscular Volume 83.8 Mean Corpuscular Hemoglobin 27.9 Mean Corpuscular Hemoglobin Concent 33.3 Red Cell Distribution Width 15.2 Platelet Count 182 Mean Platelet Volume 9.6 Neutrophils (%) (Auto) 61.2 Lymphocytes (%) (Auto) 27.0 Monocytes (%) (Auto) 9.3 Eosinophils (%) (Auto) 1.5 Basophils (%) (Auto) 1.0 Neutrophils # (Auto) 4.3 Lymphocytes # (Auto) 1.9 Monocytes # (Auto) 0.6 Eosinophils # (Auto) 0.1 Basophils # (Auto) 0.1 CBC Comment DIFF FINAL Differential Comment Prothrombin Time 10.6 Prothromb Time International Ratio 1.0 Activated Partial Thromboplast Time 25.0 Blood Urea Nitrogen 52 Creatinine 5.19 Random Glucose 230 Total Protein 5.9 Albumin 2.5 Calcium Level 8.4 Magnesium Level 2.5 Alkaline Phosphatase 64 Aspartate Amino Transf (AST/SGOT) 24 Alanine Aminotransferase (ALT/SGPT) 23 Total Bilirubin 0.2 Sodium Level 144 Potassium Level 4.2 Chloride Level 114 Carbon Dioxide Level 20.0 Anion Gap 10 Estimat Glomerular Filtration Rate 9 Total Creatine Kinase 367 Creatine Kinase MB 4.9 Creatine Kinase MB % 1.3 Troponin I LESS THAN 0.02 B-Type Natriuretic Peptide 103 Lipase 268 Urine Color YELLOW Urine Turbidity HAZY Urine pH 6.5 Urine Specific [place] 1.016 Urine Protein GREATER THAN 600 Urine Glucose (UA) 300 Urine Ketones NEG Urine Occult Blood MOD Urine Nitrite NEG Urine Bilirubin NEG Urine Urobilinogen LESS THAN 2.0 Urine Leukocyte Esterase NEG Urine RBC 2 Urine WBC 2 Urine Squamous Epithelial Cells 1 Urine Bacteria MOD Urine Hyaline Casts 6 Urine Mucus FEW Microscopic Urinalysis Comment CULTURE INDICATED Nasal Screen MRSA (PCR) MRSA NOT DETECTED Date/Time Source Procedure Growth Status 03/24/18 00:51 Urine Random Urine Urine Culture Pending Received (Phuong Rodriguez) Result Diagram: 03/23/18 2325 03/23/18 2325 Imaging Last 72 hours Impressions Renal Ultrasound 03/24/18 0000 Signed Impressions: CONCLUSION: 1. No obstruction. 2. Sonographic findings suggesting underlying medical renal disease. Chest X-Ray 03/23/18 2315 Signed Impressions: CONCLUSION: No acute cardiopulmonary disease identified. (Phuong Rodriguez) Assessment and Plan Problem List: (1) CKD (chronic kidney disease), stage V ICD Codes: N18.5 - Chronic kidney disease, stage 5 Plan: She follows with electric furnace operator in [place], has appt in one to two weeks. Last week her GFR was 8, it is stable here Etiology of CKD not clear, she has heavy proteinuria, quantify No evidence of fluid overload, no hyperkalemia No indication to begin dialysis at this time however she will need to begin in the near future. Unclear if HD or PD would be better. Start oral sodium bicarbonate for metabolic acidosis Stop IVF Remove Bueno, she is non oliguric Repeat labs tomorrow Consider adding diuretic to regimen. (2) HTN (hypertension) ICD Codes: I10 - Essential (primary) hypertension Plan: Needs better BP control Start amlodipine, losartan consider Lasix at discharge (3) DMII (diabetes mellitus, type 2) ICD Codes: E11.9 - Type 2 diabetes mellitus without complications Plan: With acute hypoglycemia She is not on metformin as reported Needs to eat regularly Taper off D10 (Phuong Rodriguez) Assessment and Plan patient was seen and examined. Agree with above assessment and plan. She is very close to dialysis, however there is no emergent need. She is from [facility], plans to go back on Friday. We discussed different dialysis modalities including PD. Antihypertensives have been initiated. Start Lasix. She can be discharged from renal standpoint. (Bethel Barriga MD) Phuong Rodriguez Mar 24, 2018 11:25 Bethel Barriga MD Mar 24, 2018 13:43
[2018-03-24] MEDS: SODIUM BICARBONATE 650 MG TAB PO SCH ×2 (12:22→20:00)
[2018-03-24] MEDS: LOSARTAN 25 MG TAB PO SCH ×2 (12:57→20:00)
[2018-03-24] MEDS ORDERED: ACETAMINOPHEN 1000 MG/100 ML 100 ML IV SCH (14:00)
--- NOTE | 2018-03-24 14:26 | EKG ---
Date Performed: 03/23/2018 Time Performed: 22:16:42 PTAGE: 57 years EKG: SINUS BRADYCARDIA LOW QRS VOLTAGE IN PRECORDIAL LEADS MODERATE VOLTAGE CRITERIA FOR LVH, CO NSIDER NORMAL VARIANT POSSIBLE ANTERIOR MYOCARDIAL INFARCTION ABNORMAL ECG NO PREVIOUS TRACING DOCTOR: Tay Quinn Interpretating Date/Time 03/24/2018 14:25:33
--- NOTE | 2018-03-24 14:35 | HHI.CCPN ---
Subjective Remarks 03/24 The patient was examined and evaluated at 1115. Patient is alert and oriented blood glucose levels within normal limits. Patient complaint of chronic back pain, patient continues on [place] 7. Ofirmev 1 g every 12 hours 24 hours ordered. Urine culture pending, concern for possible infection, blood cultures 2 obtained. Lactic acid pending. Objective - Vital Signs Date Time Temp Pulse Resp B/P (MAP) Pulse Ox O2 Delivery O2 Flow Rate FiO2 03/24/18 14:00 73 15 98 03/24/18 13:36 161/76 (104) 03/24/18 11:34 98.2 03/24/18 01:13 Room Air Intake and Output 03/24/18 03/24/18 03/24/18 07:59 15:59 23:59 Intake Total 445 ml Output Total 600 ml Balance -155 ml Result Diagram: 03/23/18 2325 03/23/18 2325 Other Results Last Impressions Renal Ultrasound 03/24/18 0000 Signed Impressions: CONCLUSION: 1. No obstruction. 2. Sonographic findings suggesting underlying medical renal disease. Chest X-Ray 03/23/18 2315 Signed Impressions: CONCLUSION: No acute cardiopulmonary disease identified. A/P Diagnosis: (1) Chronic back pain ICD Code: M54.9 - Dorsalgia, unspecified; G89.29 - Other chronic pain (2) HTN (hypertension) ICD Code: I10 - Essential (primary) hypertension (3) DMII (diabetes mellitus, type 2) ICD Code: E11.9 - Type 2 diabetes mellitus without complications Assessment and Plan Assessment Chronic back pain Add Ofirmev 1 g every 12 hours to medication regimen Rule out possible infection Obtain lactic acid levels Obtain blood cultures 2 Patient glucose levels improved. [facility] I discussed with patient and at bedside, all questions answered. Physician Daysi Oshea MD Mar 24, 2018 14:34
[2018-03-24] MEDS: FUROSEMIDE 80 MG TAB PO SCH (16:11)
[2018-03-24] MEDS: NYSTATIN 100,000 U/GM PWD 15 GM BTL TOPICAL SCH (18:00)
[2018-03-25] VITALS (30 sets, daily range): BP systolic 132–250; BP diastolic 61–182; PULSE 68–80; RESP 10–48; TEMP 98.6–98.7; O2SAT 93–99
[2018-03-25] MEDS: HEPARIN SODIUM - SQ 10,000 UNITS/ML VIAL SQ SCH ×2 (00:25→09:20)
[2018-03-25] MEDS: ACETAMINOPHEN/HYDROcodone 325 MG/7.5 MG TAB PO PRN (00:29)
[2018-03-25] MEDS ORDERED: ACETAMINOPHEN 1000 MG/100 ML 100 ML IV ONE (02:00)
[2018-03-25] MEDS: CHLORHEXIDINE GLUCONATE 2 % 1 PACK (2 CLOTHS) TOP SCH (04:00)
[2018-03-25 05:32] LABS: AUTOMATED NEUTROPHIL # 3.8 TH/MM3 (1.8-7.7); BASOPHIL # 0.1 TH/MM3 (0-0.2); BASOPHIL % 0.7 % (0.0-2.0); EOSINOPHIL # 0.2 TH/MM3 (0-0.4); EOSINOPHIL % 2.5 % (0.0-4.0); HEMATOCRIT 42.5 % (35.0-46.0); HEMOGLOBIN 13.8 GM/DL (11.6-15.3); LYMPH % 36.3 % (9.0-44.0); LYMPHOCYTE # 2.7 TH/MM3 (1.0-4.8); MEAN CELL VOLUME 85.3 FL (80.0-100.0); MEAN CORPUSCULAR HEMOGLOBIN 27.7 PG (27.0-34.0); MEAN CORPUSCULAR HGB CONC 32.5 % (32.0-36.0); MEAN PLATELET VOLUME 9.7 FL (7.0-11.0); MONO % 8.5 % (0.0-8.0); MONOCYTE # 0.6 TH/MM3 (0-0.9); PLATELET COUNT 152 TH/MM3 (150-450); RED BLOOD COUNT 4.98 MIL/MM3 (4.00-5.30); RED CELL DISTRIBUTION WIDTH 15.1 % (11.6-17.2); WHITE BLOOD COUNT 7.4 TH/MM3 (4.0-11.0)
[2018-03-25 05:44] LABS: ALBUMIN 2.8 GM/DL (3.4-5.0); ALT (GPT) 23 U/L (10-53); AST (GOT) 20 U/L (15-37); BICARBONATE 18.7 MEQ/L (21.0-32.0); BLOOD UREA NITROGEN 51 MG/DL (7-18); CALCIUM 8.4 MG/DL (8.5-10.1); CHLORIDE 112 MEQ/L (98-107); CREATININE 5.33 MG/DL (0.50-1.00); GLOMERULAR FILTRATION RATE 8 ML/MIN (>89); GLUCOSE,RANDOM 156 MG/DL (74-106); MAGNESIUM 2.3 MG/DL (1.5-2.5); PHOSPHORUS 5.8 MG/DL (2.5-4.9); SODIUM (NA) 143 MEQ/L (136-145)
[2018-03-25 05:46] LABS: ALKALINE PHOSPHATASE 70 U/L (45-117); TOTAL BILIRUBIN ADULT 0.2 MG/DL (0.2-1.0); TOTAL PROTEIN 6.6 GM/DL (6.4-8.2)
[2018-03-25 05:49] LABS: INTERNATIONAL NORMALIZED RATIO 1.2 RATIO; PROTHROMBIN TIME - PATIENT 12.3 SEC (9.8-11.6)
[2018-03-25] MEDS: INSULIN ASPART SUPPLEMENTAL SCALE SQ SCH ×2 (08:00→12:00)
[2018-03-25] MEDS: LABETALOL HCL 100 MG/20 ML VIAL IV PUSH PRN (09:00)
--- NOTE | 2018-03-25 09:02 | HHI.PR ---
Subjective Remarks Follow-up hypoglycemia, chronic back pain, HTN and abnormal urinalysis. She feels fine and wants to go home here on vacation until Friday. States she has been having episodes of hypoglycemia worse when she missed meals. Patient counseled. Also has lower back pain on Lortab also counseled regarding narcotics. Uncontrolled BP which she attributes to her back pain. Possible abnormal urinalysis with hypogastric discomfort. Objective Vitals Vital Signs Date Time Temp Pulse Resp B/P (MAP) Pulse Ox O2 Delivery O2 Flow Rate FiO2 03/25/18 06:00 68 03/25/18 04:00 68 03/25/18 04:00 98.6 68 26 132/67 (88) 97 03/25/18 02:00 74 03/25/18 00:00 71 03/25/18 00:00 98.7 71 14 190/61 (104) 95 03/24/18 22:00 72 03/24/18 21:00 16 03/24/18 20:00 71 03/24/18 20:00 98.3 71 14 158/70 (99) 100 03/24/18 16:00 72 03/24/18 16:00 72 33 97 03/24/18 14:00 73 15 98 03/24/18 13:36 72 25 161/76 (104) 100 03/24/18 13:00 81 27 200/91 (127) 95 03/24/18 13:00 81 27 200/91 (127) 95 03/24/18 12:59 79 03/24/18 12:59 79 29 190/90 (123) 97 03/24/18 12:57 79 29 212/99 (136) 97 03/24/18 12:57 79 03/24/18 12:39 80 03/24/18 12:39 80 12 231/100 (143) 98 03/24/18 12:30 78 03/24/18 12:30 78 26 159/115 (130) 98 03/24/18 12:00 75 03/24/18 12:00 75 19 162/69 (100) 98 03/24/18 11:51 72 03/24/18 11:51 72 22 178/82 (114) 98 03/24/18 11:41 72 13 221/99 (139) 96 03/24/18 11:41 72 03/24/18 11:34 98.2 74 25 245/107 (153) 95 03/24/18 11:34 74 03/24/18 11:31 98.2 78 27 229/104 (145) 93 03/24/18 11:31 78 03/24/18 11:20 98.4 73 16 206/82 (123) 94 03/24/18 11:20 73 03/24/18 11:18 74 03/24/18 11:18 98.4 74 19 216/98 (137) 94 03/24/18 11:13 98.4 73 21 208/84 (125) 93 03/24/18 11:13 73 03/24/18 11:00 98.2 74 23 219/102 (141) 95 03/24/18 11:00 74 03/24/18 10:30 76 03/24/18 10:30 98.2 76 36 209/94 (132) 94 03/24/18 10:00 81 03/24/18 10:00 98.4 81 27 217/101 (139) 96 03/24/18 09:31 78 I/O 03/24/18 03/24/18 03/24/18 03/25/18 03/25/18 03/25/18 07:00 15:00 23:00 07:00 15:00 23:00 Intake Total 445 ml 1781 ml 480 ml Output Total 600 ml 1500 ml 950 ml Balance -155 ml 281 ml -470 ml Intake Oral 125 ml 1600 ml 480 ml IV Total 320 ml 181 ml Output Urine Total 600 ml 1500 ml 950 ml # Bowel Movements 1 Result Diagram: 03/25/18 0428 03/25/18 0428 Imaging Last Impressions Renal Ultrasound 03/24/18 0000 Signed Impressions: CONCLUSION: 1. No obstruction. 2. Sonographic findings suggesting underlying medical renal disease. Chest X-Ray 03/23/18 7295 Signed Impressions: CONCLUSION: No acute cardiopulmonary disease identified. Objective Remarks GENERAL: Well-nourished, well-developed patient. SKIN: Warm and dry CARDIOVASCULAR: Regular rate and rhythm without murmurs, gallops, or rubs. RESPIRATORY: Breath sounds equal bilaterally. No accessory muscle use. GASTROINTESTINAL: Abdomen soft, non-tender, nondistended. MUSCULOSKELETAL: No cyanosis, or edema. BACK: Nontender without obvious deformity. NEURO EXAM: Alert and oriented nonfocal Procedures none A/P Problem List: (1) CKD (chronic kidney disease), stage V ICD Code: N18.5 - Chronic kidney disease, stage 5 Assessment and Plan Encephalopathy resolved -Symptomatic hypoglycemia. Resolved off D10 since yesterday -Hold insulin and metformin -Frequent glucose checks -History of diabetes mellitus we will adjust long-acting insulin check A1c. Hypoglycemia protocol Hypertension. Improving but remains uncontrolled. Contributed by pain. Norvasc and Cozaar adjusted by nephrology. Continue Lasix -Labetalol PRN Chronic renal disease stage 5 -Ultrasound kidneys -Nephrology consultation Chronic back pain. We will confirm [place] dose with PCP Abnormal urinalysis. Empiric Ceftin follow-up urine culture on this DVT GI prophylaxis -Teds SCDs -Subcu heparin -Pepcid Discharge Planning Discharge when cleared by nephrology and BP less than 180/100 Luis Baker MD Mar 25, 2018 09:02
--- NOTE | 2018-03-25 09:09 | HHI.DCPOC ---
Discharge Care Plan Diagnosis: (1) CKD (chronic kidney disease), stage V Your Health Problems Are: Difficulty with ADL Exercise Tolerance Goals to Promote Your Health * To prevent worsening of your condition and complications * To maintain your health at the optimal level Directions to Meet Your Goals Take your medications as prescribed Follow your dietary instruction Follow activity as directed Keep your appointments as scheduled Take your immunizations and boosters as scheduled If your symptoms worsen call your PCP, if no PCP go to Urgent Care Center or Emergency Room Smoking is Dangerous to Your Health. Avoid second hand smoke Call the 24-hour hour crisis hotline for domestic abuse at Luis Baker MD Mar 25, 2018 09:09
--- NOTE | 2018-03-25 09:10 | HHI.FF ---
Face to Face Verification Diagnosis: (1) DMII (diabetes mellitus, type 2) (2) CKD (chronic kidney disease), stage V (3) HTN (hypertension) Physical Therapy Order: Evaluate and Treat, Improve ambulation, Strength and gait training Home Health Nursing Order: Medical education Signs/symptoms of disease process Diabetic education Medication education-adverse effect Nursing assessment with vital signs I have seen patient Violeta Stokes on 03/25/18. My clinical findings support the need for the requested home health care services because: Deconditioned w/ increased weakness I certify that my clinical findings support that this patient is homebound because: Unsafe to leave home unassisted Luis Baker MD Mar 25, 2018 09:10
[2018-03-25] MEDS ORDERED: WALKER WHEELS/F1 MIS (09:11)
[2018-03-25] MEDS: NYSTATIN 100,000 U/GM PWD 15 GM BTL TOPICAL SCH ×2 (09:19→11:45)
[2018-03-25] MEDS: DOCUSATE SODIUM 50 MG/SENNA 8.6 MG TAB PO SCH (09:19)
[2018-03-25] MEDS: FUROSEMIDE 80 MG TAB PO SCH (09:19)
[2018-03-25] MEDS: SODIUM BICARBONATE 650 MG TAB PO SCH (09:19)
[2018-03-25] MEDS: SODIUM CHLORIDE 0.9% FLUSH 10 ML FLUSH IV FLUSH SCH (09:20)
[2018-03-25] MEDS ORDERED: NALOXONE HCL 0.4 MG/ML AMP IV PUSH PRN (11:00)
[2018-03-25] MEDS ORDERED: MORPHINE SULFATE 4 MG/ML INJ IV PUSH PRN (11:00)
[2018-03-25] MEDS ORDERED: CALC667C PO (11:09)
[2018-03-25] MEDS ORDERED: FURO80TA PO (11:09)
[2018-03-25] MEDS ORDERED: CEFU1TAB18 PO (11:09)
[2018-03-25] MEDS ORDERED: LEVEMIR SQ (11:09)
[2018-03-25] MEDS ORDERED: AMLO10 PO (11:09)
[2018-03-25] MEDS ORDERED: SODI650T PO (11:09)
[2018-03-25] MEDS ORDERED: Nystatin Powder TOPICAL (11:09)
--- NOTE | 2018-03-25 11:11 | HHI.DS ---
Discharge Summary Admission Date Mar 24, 2018 at 00:27 Discharge Date: Mar 25, 2018 Admitting Diagnosis AMS, renal failure, persistent hypoglycemia (1) CKD (chronic kidney disease), stage V ICD Code: N18.5 - Chronic kidney disease, stage 5 Diagnosis: Principal Procedures none Brief History - From Admission 57 year old female presents with a history of diaphoresis with a decreased level of consciousness that began in the evening today according to her . He then called the ambulance services and the patient was noted to have a blood sugar of 16. The patient last administered her insulin around noon. She administered 20 units of Levemir and 15 units of Humalog. The patient has not eaten her dinner this evening. She last ate lunch at 1 PM. She denies having any nausea, vomiting, she does report feeling cold and is diaphoretic. The patient reports having a bitemporal headache and low back pain. She reports having a history of chronic back pain and is on [place] and [place]. She reports that she awoke with worsening back pain this morning. She is currently on vacation. Her reports that she does have chronic renal insufficiency that is so severe that she will likely have to go on dialysis when she returns from vacation. CBC/BMP: 03/25/18 0428 03/25/18 0428 Significant Findings Laboratory Tests Test 03/23/18 23:25 03/24/18 00:51 03/24/18 01:50 03/24/18 11:40 Monocytes (%) (Auto) 9.3 % (0.0-8.0) Blood Urea Nitrogen 52 MG/DL (7-18) Creatinine 5.19 MG/DL (0.50-1.00) Random Glucose 230 MG/DL (74-106) Total Protein 5.9 GM/DL (6.4-8.2) Albumin 2.5 GM/DL (3.4-5.0) Calcium Level 8.4 MG/DL (8.5-10.1) Chloride Level 114 MEQ/L (98-107) Carbon Dioxide Level 20.0 MEQ/L (21.0-32.0) Estimat Glomerular Filtration Rate 9 ML/MIN (>89) Total Creatine Kinase 367 U/L (26-192) Creatine Kinase MB 4.9 NG/ML (0.5-3.6) Troponin I LESS THAN 0.02 NG/ML LESS THAN 0.02 NG/ML B-Type Natriuretic Peptide 103 PG/ML (0-100) Urine Turbidity HAZY (CLEAR) Urine Protein GREATER THAN 600 mg/dL Urine Glucose (UA) 300 mg/dL (NEG) Urine Occult Blood MOD (NEG) Urine Bacteria MOD /hpf (NONE) Urine Mucus FEW /lpf (OCC) Urine Albumin/Creatinine Ratio GREATER THAN 5867 mg/g Test 03/24/18 12:43 03/24/18 16:58 03/25/18 04:28 Troponin I LESS THAN 0.02 NG/ML Monocytes (%) (Auto) 8.5 % (0.0-8.0) Prothrombin Time 12.3 SEC (9.8-11.6) Blood Urea Nitrogen 51 MG/DL (7-18) Creatinine 5.33 MG/DL (0.50-1.00) Random Glucose 156 MG/DL (74-106) Albumin 2.8 GM/DL (3.4-5.0) Calcium Level 8.4 MG/DL (8.5-10.1) Phosphorus Level 5.8 MG/DL (2.5-4.9) Chloride Level 112 MEQ/L (98-107) Carbon Dioxide Level 18.7 MEQ/L (21.0-32.0) Estimat Glomerular Filtration Rate 8 ML/MIN (>89) Imaging Last Impressions Renal Ultrasound 03/24/18 0000 Signed Impressions: CONCLUSION: 1. No obstruction. 2. Sonographic findings suggesting underlying medical renal disease. Chest X-Ray 03/23/18 2315 Signed Impressions: CONCLUSION: No acute cardiopulmonary disease identified. PE at Discharge GENERAL: Well-nourished, well-developed patient. SKIN: Warm and dry CARDIOVASCULAR: Regular rate and rhythm without murmurs, gallops, or rubs. RESPIRATORY: Breath sounds equal bilaterally. No accessory muscle use. GASTROINTESTINAL: Abdomen soft, non-tender, nondistended. MUSCULOSKELETAL: No cyanosis, or edema. BACK: Nontender without obvious deformity. NEURO EXAM: Alert and oriented nonfocal Hospital Course Encephalopathy resolved -Symptomatic hypoglycemia. Resolved off D10 since yesterday -Hold insulin and metformin -Frequent glucose checks -History of diabetes mellitus we will adjust long-acting insulin check A1c. Hypoglycemia protocol Hypertension. Improving but remains uncontrolled. Contributed by pain. Norvasc and Cozaar adjusted by nephrology. Continue Lasix -Labetalol PRN Chronic renal disease stage 5 -Ultrasound kidneys -Nephrology consultation Chronic back pain. We will confirm [place] dose with PCP Abnormal urinalysis. Empiric Ceftin follow-up urine culture on this DVT GI prophylaxis -Teds SCDs -Subcu heparin -Pepcid Dc if BP < 180/100 Pt Condition on Discharge: Stable Discharge Disposition: Disch w/ Home Health Serv Discharge Time: > 30 minutes Discharge Instructions DIET: Follow Instructions for: Heart Healthy Diet, Diabetic Diet Activities you can perform: Regular-No Restrictions Activities to Avoid: Driving Follow up Referrals: Infectious Disease Nephrology - 1 Week PCP Follow-up - 1 Week New Medications: Walker with Front Wheels (Walker with Front Wheels) 1 Mis Mis EA .XX DIRECTED, #1 0 Refills Amlodipine (Norvasc) 10 Mg Tab 10 MG PO DAILY for Blood Pressure Management, #30 TAB Calcium Acetate (Phosphate Bin (Calcium Acetate) 667 Mg Cap 667 MG PO TID for kidneys, #90 CAP Cefuroxime (Ceftin) 250 Mg Tab 250 MG PO Q12HR for Infection, #13 TAB Furosemide (Furosemide) 80 Mg Tab 80 MG PO DAILY for Blood Pressure Management, #30 TAB Sodium Bicarbonate (Sodium Bicarbonate) 650 Mg Tab 650 MG PO TID for acidosis, #90 TAB [Nystatin Powder] () 15 APPLIC/15 GM POWD 1 APPLIC TOPICAL TID for Infection, #90 APPL Changed Medications: Insulin Detemir Inj (Levemir Inj) 1,000 unit/ 10 ML Vial 10 UNITS SQ BID for Blood Sugar Management, #1 VIAL 0 Refills (Changed from: 20 UNITS) Do not mix with any other Insulin. Continued Medications: Insulin Lispro (Human) Inj (Humalog Inj) 1,000 Unit/10 Ml Vial 2-12 UNITS SQ ACHS for Blood Sugar Management, #1 VIAL 0 Refills Max dose at bedtime:( )units; sugars < 70,(0)units; sugars 150-199,(2)units; sugars 200-249,(4)units; sugars 250-299,(7)units; sugars 300-349,(10)units; sugars more than 349,(12)units. Linagliptin (Tradjenta) 5 Mg Tab 5 MG PO DAILY for Blood Sugar Management, #30 TAB 0 Refills Pregabalin (Lyrica) 150 Mg Cap 150 MG PO BID, #60 CAP 0 Refills Valsartan (Diovan) 160 Mg Tab 160 MG PO BID, #60 TAB 0 Refills Discontinued Medications: Metformin (Metformin) 1,000 Mg Tab 1000 MG PO BIDPC for Blood Sugar Management, #60 TAB 0 Refills Luis Baker MD Mar 25, 2018 11:11
--- NOTE | 2018-03-25 11:30 | HHI.NPPN ---
Subjective Renal Failure: Chronic, Stage V Interval History GFR is stable. Variable BP readings. Excellent urine output. (Phuong Rodriguez) Objective Data Data Vital Signs Date Time Temp Pulse Resp B/P (MAP) Pulse Ox O2 Delivery O2 Flow Rate FiO2 03/25/18 06:00 68 03/25/18 04:00 68 03/25/18 04:00 98.6 68 26 132/67 (88) 97 03/25/18 02:00 74 03/25/18 00:00 71 03/25/18 00:00 98.7 71 14 190/61 (104) 95 03/24/18 22:00 72 03/24/18 21:00 16 03/24/18 20:00 71 03/24/18 20:00 98.3 71 14 158/70 (99) 100 03/24/18 16:00 72 03/24/18 16:00 72 33 97 03/24/18 14:00 73 15 98 03/24/18 13:36 72 25 161/76 (104) 100 03/24/18 13:00 81 27 200/91 (127) 95 03/24/18 13:00 81 27 200/91 (127) 95 03/24/18 12:59 79 03/24/18 12:59 79 29 190/90 (123) 97 03/24/18 12:57 79 29 212/99 (136) 97 03/24/18 12:57 79 03/24/18 12:39 80 03/24/18 12:39 80 12 231/100 (143) 98 03/24/18 12:30 78 03/24/18 12:30 78 26 159/115 (130) 98 03/24/18 12:00 75 03/24/18 12:00 75 19 162/69 (100) 98 03/24/18 11:51 72 03/24/18 11:51 72 22 178/82 (114) 98 03/24/18 11:41 72 13 221/99 (139) 96 03/24/18 11:41 72 03/24/18 11:34 98.2 74 25 245/107 (153) 95 03/24/18 11:34 74 03/24/18 11:31 98.2 78 27 229/104 (145) 93 03/24/18 11:31 78 (Phuong Rodriguez) -: 03/25/18 0428 03/25/18 0428 Microbiology 03/24/18 Aerobic Blood Culture - Preliminary, Resulted NO GROWTH IN 1 DAY 03/24/18 Anaerobic Blood Culture - Preliminary, Resulted NO GROWTH IN 1 DAY 03/24/18 Aerobic Blood Culture - Preliminary, Resulted NO GROWTH IN 1 DAY 03/24/18 Anaerobic Blood Culture - Preliminary, Resulted NO GROWTH IN 1 DAY Imaging Last 72 hours Impressions Renal Ultrasound 03/24/18 0000 Signed Impressions: CONCLUSION: 1. No obstruction. 2. Sonographic findings suggesting underlying medical renal disease. Chest X-Ray 03/23/18 2315 Signed Impressions: CONCLUSION: No acute cardiopulmonary disease identified. (Phuong Rodriguez) Physical Exam General Appearance: Well Developed, Well Nourished, Comfortable (Phuong Rodriguez) Eyes Eye Exam: Pupils Equal (Phuong Rodriguez) Throat Throat Exam: Oral Mucosa [place] & Moist (Phuong Rodriguez) Pulmonary Resp Exam: Clear Bilaterally, Breath Sounds Equal, No Distress (Phuong Rodriguez) Cardiology CV Exam: Regular, Normal Sinus Rhythm, Good Perfusion (Phuong Rodriguez) Gastrointestinal/Abdomen GI Exam: Soft, Non-Tender, Bowel Sounds Present (Phuong Rodriguez) Musculoskeletal MS Exam: Joints Intact, Normal Gait, Normal Tone, Good Strength (Phuong Rodriguez) Integumentary Skin Exam: Clear, Warm, Dry, Intact (Phuong Rodriguez) Extremeties Extremities Exam: Pedal Pulses Palpable, Trace Edema (Phuong Rodriguez) Neurologic Neuro Exam: Alert, Awake, Oriented, Speech Clear, Moving All Extremities (Phuong Rodriguez) Psychiatric Psych Exam: Appropriate Responses (Phuong Rodriguez) Assessment/Plan Discussed Condition With: Patient, Spouse Assessment Summary: Hypertension, Diabetes Mellitus, End Stage Renal Disease Problem List: (1) CKD (chronic kidney disease), stage V ICD Codes: N18.5 - Chronic kidney disease, stage 5 Plan: Stable GFR. She has advanced CKD, most likely diabetic nephropathy. No indication to begin dialysis at this time however she will need to begin very soon. We advised several times that she will need to follow up as soon as she is back home to begin making arrangemetns. She follows with oscillograph technician in [place]. On oral sodium bicarbonate for metabolic acidosis, dosage increased Started Lasix 80 mg PO daily. Ordered calcium acetate with meals for hyperphosphatemia. PTH pending (2) HTN (hypertension) ICD Codes: I10 - Essential (primary) hypertension Plan: Medications now include amlodipine 10 mg per day losartan increased to 50 mg BID Lasix 80 mg daily If BP is 180/90 or below, she can be discharged. Can add clonidine or hydralazine if needed. (3) DMII (diabetes mellitus, type 2) ICD Codes: E11.9 - Type 2 diabetes mellitus without complications Plan: Her insulin requirement may be decreased due to reduction in GFR BG stable overnight Eating regularly Plan She can be discharged provided better BP control. (Phuong Rodriguez) Plan patient was seen and examined on 03/25/18 in the morning. I discussed with her and her significant other. She is very close to dialysis, and I have stressed importance of followup with her oscillograph technician immediately after reaching [facility] to start making plans for dialysis. Dietary advice regarding potassium restriction, phosphorus restriction given. Salt restriction also advised. Patient's BP is high. We have added antihypertensives. If BP is better, the patient can be discharged: discussed with RN. (Bethel Barriga MD) Phuong Rodriguez Mar 25, 2018 11:30 Bethel Barriga MD Mar 26, 2018 09:12
[2018-03-25] MEDS ORDERED: SODIUM BICARBONATE 650 MG TAB PO SCH (13:00)
[2018-03-25] MEDS ORDERED: CALCIUM ACETATE 667 MG CAP PO SCH (13:00)
[2018-03-25] MEDS ORDERED: CEFUROXIME AXETIL 250 MG TAB PO SCH (13:00)
[2018-03-25 16:43] LABS: HEMOGLOBIN A1C 7.1 % (4.3-6.0)
[2018-03-25] MEDS ORDERED: LOSARTAN 50 MG TAB PO SCH (21:00)
[2018-03-25] MEDS ORDERED: PREGABALIN 75 MG CAP PO SCH (21:00)
== END 2018-03-25 14:45 | disposition home health service (06) | DRG 637 ==
LOC: NEPE 23:06 → NEDA 03-24 00:27 → HIMN 03-24 01:25
PROVIDERS: ADMIT Internal Medicine; ATTEND Internal Medicine
DX: E11.649 Type 2 diabetes mellitus with hypoglycemia without coma (principal); G93.40 Encephalopathy, unspecified; I12.0 Hypertensive chronic kidney disease with stage 5 chronic kidney disease or end stage renal disease; E87.2 Acidosis; E11.22 Type 2 diabetes mellitus with diabetic chronic kidney disease; E11.21 Type 2 diabetes mellitus with diabetic nephropathy; N18.5 Chronic kidney disease, stage 5; G89.29 Other chronic pain; M54.5 Low back pain; R00.1 Bradycardia, unspecified; E66.9 Obesity, unspecified; R82.90 Unspecified abnormal findings in urine; F17.200 Nicotine dependence, unspecified, uncomplicated; F12.90 Cannabis use, unspecified, uncomplicated; Z68.32 Body mass index [BMI] 32.0-32.9, adult; Z79.4 Long term (current) use of insulin; Z79.891 Long term (current) use of opiate analgesic; Z98.84 Bariatric surgery status
CPT/HCPCS: 71045; 76775; 80053; 81001; 82043; 82550; 82552; 82948; 83036; 83605; 83690; 83735; 83880; 83970; 84100; 84484; 85025; 85610; 85730; 87040; 87086; 87641; 93005; 96374; J0131; J1644; J1815; J7030